=== PATIENT | male | born 1960 | race Caucasian/White ===

== ENCOUNTER 2021-08-09 11:47 | Emergency (ER) | payer BC, OTHER ==
[~2021-08-09] VITALS: Ht 182.9 cm; Wt 81.8 kg
[2021-08-09] MEDS ORDERED: FLEET ENEMA PR ONE (16:00)
[2021-08-09] MEDS ORDERED: COLA100C5 PO (18:05)
[2021-08-09] MEDS ORDERED: MIRA3350 PO (18:05)
[2021-08-09 18:13] VITALS: BP 140/90
== END 2021-08-09 18:15 | disposition home or self-care (01) ==
LOC: EDBD 11:47 → M ED 11:47
DX: K59.00 Constipation, unspecified (principal); F17.200 Nicotine dependence, unspecified, uncomplicated

== ENCOUNTER 2025-03-05 05:47 | Emergency (ER) | payer OTHER, SELFPAY ==
[~2025-03-05] VITALS: Ht 170.2 cm; Wt 79.5 kg
[~2025-03-05 05:47] MED LIST: COLA100C5 PO; MIRA3350 PO
[2025-03-05] MEDS: IBUPROFEN 600 MG TAB PO ONE (08:31)
[2025-03-05 08:58] VITALS: BP 120/62; TEMP 97.8; O2SAT 96
== END 2025-03-05 09:02 | disposition home or self-care (01) ==
LOC: M ED 05:47
DX: M54.50 Low back pain, unspecified (principal); F17.210 Nicotine dependence, cigarettes, uncomplicated; Z79.899 Other long term (current) drug therapy

== ENCOUNTER 2025-03-08 02:58 | Emergency (ER) | payer MEDICAID, OTHER, SELFPAY ==
[~2025-03-08] VITALS: Ht 170.2 cm; Wt 79.5 kg
[2025-03-08] MEDS: KETOROLAC 30 MG/ML 1 ML VIAL IV ONE (05:36)
[2025-03-08 07:17] VITALS: BP 142/76; TEMP 98.1; O2SAT 98
[2025-03-08] MEDS ORDERED: NAPR-837 PO (07:30)
== END 2025-03-08 08:07 | disposition home or self-care (01) ==
LOC: M ED 02:58 → EDBD 02:58 → M ED 08:07
DX: M51.360 Other intervertebral disc degeneration, lumbar region with discogenic back pain only (principal); F17.210 Nicotine dependence, cigarettes, uncomplicated; Z79.899 Other long term (current) drug therapy
CPT/HCPCS: 72131; 96374; 96375; 99284; J1885; J2919; J3360